=== PATIENT | male | born 1980 | race Caucasian/White ===

== ENCOUNTER 2017-12-05 10:26 | Emergency (ER) | payer SELFPAY ==
[~2017-12-05] VITALS: Ht 188 cm; Wt 93.8 kg
[2017-12-05 10:33] VITALS: BP 126/81
== END 2017-12-05 12:05 | disposition left against medical advice (07) ==
LOC: EME 10:26
DX: Z76.0 Encounter for issue of repeat prescription (principal); Z53.21 Procedure and treatment not carried out due to patient leaving prior to being seen by health care provider

== ENCOUNTER 2017-12-07 09:14 | Emergency (ER) | payer OTHER ==
[~2017-12-07] VITALS: Ht 188 cm; Wt 94.2 kg
[2017-12-07] MEDS ORDERED: SEROQUEL XR300 MG PO (12:45)
[2017-12-07] MEDS ORDERED: LITHIUM CARBON450 MG PO (12:45)
[2017-12-07] MEDS ORDERED: LITHIUM CARBON300 M2 PO (12:45)
[2017-12-07 13:05] VITALS: BP 144/96
== END 2017-12-07 13:07 | disposition home or self-care (01) ==
LOC: EME 09:14
DX: F31.9 Bipolar disorder, unspecified (principal); G47.00 Insomnia, unspecified; Z76.0 Encounter for issue of repeat prescription
CPT/HCPCS: 99281; 99283